=== PATIENT | male | born 1950 | race Caucasian/White ===

== ENCOUNTER → 2016-11-23 | Outpatient (CLI) | payer BC | END | disposition home or self-care (01) | LOC: CRE 10:13 | PROVIDERS: ATTEND Internal Medicine Cardiovascular Disease | DX: I25.10 Atherosclerotic heart disease of native coronary artery without angina pectoris (principal) | CPT/HCPCS: 93797 ==

== ENCOUNTER → 2017-03-23 | Outpatient (CLI) | payer BC ==
--- NOTE | 2017-03-23 15:22 | RADRPT ---
PROCEDURE: Left knee radiographs. CLINICAL INDICATION: Left knee pain. TECHNIQUE: Three views. Weight bearing. Frontal, lateral, and patellar view. COMPARISON: No prior studies are available for comparison. FINDINGS: There is no fracture or dislocation. The soft tissues are normal. There are degenerative changes with osteophytes arising from all 3 joint compartment margins. There is medial joint compartment narrowing and mild deformity. There is no lytic or blastic lesion. There is no radiopaque foreign body. IMPRESSION: 1. Moderate to severe degenerative changes of the left knee. 2. No acute abnormality. RPTAT: QQ .Romaine Mohamud MD, MD Date Time Electronically viewed and signed by .Romaine Mohamud MD, on 03/23/2017 15:22 .R/
== END | disposition home or self-care (01) ==
LOC: HKI 13:51
DX: M25.562 Pain in left knee (principal)
CPT/HCPCS: 20610; G0463

== ENCOUNTER → 2017-05-09 | Outpatient (CLI) | payer MEDICARE, OTHER ==
[~2017-05-09] MED LIST: ADDE30 PO; ASPI-664 PO; CARV6.25 PO; LORA1TAB PO; OMEG-135 PO; PRAS10TA6 PO; RANI150T9 PO; RANO500T2 PO; ROSU20TA27 PO; TEMA15CA PO; TRAM50TA2 PO; UBID30CA12 PO; VALS320T11 PO
--- NOTE | 2017-05-10 09:13 | RADRPT ---
PROCEDURE: XR Knee. CLINICAL INDICATION: Right knee pain TECHNIQUE: 3 images of the right knee are available for review. COMPARISON: None available FINDINGS: There is no acute fracture. Alignment is normal. Joint spaces are preserved. There is a small suprapatellar enthesophyte. There is no significant joint effusion. IMPRESSION: 1. No radiographic evidence of acute osseous abnormality or significant degenerative change. RPTAT: UU .Kaleb Wright MD, MD Date Time Electronically viewed and signed by .Kaleb Wright MD, on 05/10/2017 09:13 .K/
--- NOTE | 2017-05-12 02:39 | HKNOTE ---
DATE OF SERVICE: 05/09/2017 MAIN COMPLAINT: Patient comes for preop evaluation. He has been cleared for surgery by Dr. Lakhwinder Blackwell. He is scheduled to have a left total knee replacement on 05/10/2017. I think he said that he has not given any blood for autotransfusion. He understands the risks associated with using hospital blood, if needed. Numerous questions were asked and answered. In particular, he wanted to talk about his right knee, which has various symptoms. Patient has various symptoms which possibly suggest a torn meniscus. I advised him we will get an MRI scan of the knee after he has had his left total knee replacement. He was seen at the Clinic many years ago and he was told he would need a lateral release of the patella. José Manuel Walker did an operative arthroscopy on the knee. PHYSICAL EXAMINATION: The left knee lacks 15 degrees of extension. Dictated By: Herber Morel MD /rico/erick /Document#: [id number]
== END | disposition home or self-care (01) ==
LOC: HKI 13:31
DX: Z01.818 Encounter for other preprocedural examination (principal); M17.12 Unilateral primary osteoarthritis, left knee
CPT/HCPCS: 73562; G0463

== ENCOUNTER 2017-05-10 05:57 | Inpatient (IN) | payer MEDICARE, OTHER ==
[2017-05-10] VITALS (28 sets, daily range): BP systolic 95–132; BP diastolic 50–85; PULSE 50–75; RESP 10–22; Ht 172.7 cm; Wt 79.5 kg
[~2017-05-10] VITALS: Ht 172.7 cm; Wt 79.5 kg
[~2017-05-10 05:57] MED LIST changes: -ADDE30 PO; -CARV6.25 PO; -LORA1TAB PO; -OMEG-135 PO; -PRAS10TA6 PO; -RANO500T2 PO; -ROSU20TA27 PO; -TEMA15CA PO; -TRAM50TA2 PO; -UBID30CA12 PO; -VALS320T11 PO
[2017-05-10] MEDS ORDERED: RANO500T2 PO (05:58)
[2017-05-10] MEDS ORDERED: ROSU20TA27 PO (05:58)
[2017-05-10] MEDS ORDERED: VALS320T11 PO (05:58)
[2017-05-10] MEDS ORDERED: PRAS10TA6 PO (05:58)
[2017-05-10] MEDS ORDERED: CARV6.25 PO (05:58)
[2017-05-10] MEDS ORDERED: TRANEXAMIC ACID IVPB ONE (06:30)
[2017-05-10] MEDS ORDERED: VANCOMYCIN 1 GM (PMX) 250 ML IVPB ONE (06:30)
[2017-05-10] MEDS ORDERED: TRANEXAMIC ACID IRR SCH ×2 (06:30)
[2017-05-10] MEDS ORDERED: CELECOXIB 200 MG CAP PO ONE (06:30)
[2017-05-10] MEDS ORDERED: ONDANSETRON 4 MG INJ IV ONE (06:30)
[2017-05-10] MEDS ORDERED: LACTATED RINGER'S 1,000 ML IV* SCH (06:30)
[2017-05-10] MEDS ORDERED: LANSOPRAZOLE 30 MG CAP PO ONE (06:30)
[2017-05-10] MEDS ORDERED: oxyCODONE (CR) 10 MG TAB [oxyCONTIN] PO ONE (06:30)
[2017-05-10] MEDS ORDERED: SOD CHLORIDE 0.9% IRR SCH ×2 (06:30)
[2017-05-10] MEDS ORDERED: SOD CHLORIDE 0.9% IVPB ONE (06:30)
[2017-05-10] MEDS ORDERED: DEXAMETHASONE 4 MG/ML 1 ML INJ IV ONE (06:30)
[2017-05-10] MEDS ORDERED: MIDAZOLAM 1 MG/ML 2 ML INJ ONE (06:39)
[2017-05-10] MEDS ORDERED: ROPIVACAINE 0.2% 100 ML ONE (06:47)
[2017-05-10] MEDS ORDERED: POLYMYXIN B 500000 UNIT INJ ONE (06:47)
[2017-05-10] MEDS ORDERED: VANCOMYCIN 1 GM INJ ONE (06:47)
[2017-05-10] MEDS ORDERED: METHYLENE BLUE 1% 10 ML INJ ONE (06:48)
[2017-05-10] MEDS ORDERED: TOBRAMYCIN 1.2 GM POWDER ONE (06:48)
[2017-05-10] MEDS ORDERED: BUPIVACAINE 0.25%/EPI (SDV) 10 ML INJ ONE (06:56)
--- NOTE | 2017-05-10 06:59 | HPN ---
Date/Time of Note Date/Time of Note DATE: 05/10/17 TIME: 06:59 Interval H&P Admission Note Pt. seen H&P reviewed: No system changes JOSH HERNANDEZ PA-C May 10, 2017 06:59
[2017-05-10] MEDS ORDERED: ROPIVACAINE 0.5 % 30 ML VIAL ONE (07:22)
[2017-05-10] MEDS ORDERED: KNEE PAIN COCKTAIL VANCO INJ SCH ×6 (07:30)
[2017-05-10] MEDS ORDERED: TRAM50TA2 PO (07:30)
[2017-05-10] MEDS ORDERED: ADDE30 PO (07:30)
[2017-05-10] MEDS ORDERED: LORA1TAB PO (07:30)
[2017-05-10] MEDS ORDERED: TEMA15CA PO (07:30)
[2017-05-10] MEDS ORDERED: UBID30CA12 PO (07:30)
[2017-05-10] MEDS ORDERED: OMEG-135 PO (07:30)
[2017-05-10] MEDS ORDERED: BACITRACIN 50000 UNITS INJ IRR ONE (08:14)
[2017-05-10] MEDS ORDERED: ROPIVACAINE 0.2% 100ML BAG INJ ONE (08:15)
[2017-05-10] MEDS ORDERED: TRIAMCINOLONE ACET 40 MG/ML INJ ONE (09:41)
--- NOTE | 2017-05-10 11:30 | OPR ---
Date/Time of Note Date/Time of Note DATE: 05/10/17 TIME: 11:23 Operative Report Free Text/Dictation Surgeon Dr. Maehr Shearing Supervisor Miguelangel Saldana Anesthesiology Dr. Sims Preoperative diagnose severe degenerative osteoarthritis of the left Postoperative diagnosis same Surgery left total knee replaced Findings at surgery severe arthritis of the left bone extremely hard estimated blood loss 150 cc Specimen bone Transfusion none grafts none Complications none LEXIE MAHER MD May 10, 2017 11:29
[2017-05-10] MEDS ORDERED: PROPOFOL 20 ML ONE (11:33)
[2017-05-10] MEDS ORDERED: ROCURONIUM 50 MG INJ ONE (11:33)
[2017-05-10] MEDS ORDERED: LIDOCAINE 2% (SDV) 5 ML INJ ONE (11:33)
[2017-05-10] MEDS ORDERED: GLYCOPYRROLATE 0.4 MG INJ ONE (11:33)
[2017-05-10] MEDS ORDERED: NEOSTIGMINE 3 MG/3 ML SYRINGE ONE (11:33)
[2017-05-10] MEDS ORDERED: ONDANSETRON 4 MG INJ ONE (11:33)
--- NOTE | 2017-05-10 11:44 | OPR ---
Date/Time of Note Date/Time of Note DATE: 05/10/17 TIME: 11:30 Operative Report Procedure Description Date of Operation: June 10, 2017 Surgeon: Herber Morel MD Corporate Intern: Ron Bills PA-C Anesthesiologist: Dr. Aaron Fuller Preoperative Diagnosis: Exceedingly severe degenerative osteoarthritis of the left knee. Postoperative Diagnosis: Exceedingly severe degenerative osteoarthritis of the left knee. Operation Performed: Total knee replacement (arthroplasty of the knee, condylar plateau medial and lateral compartments with patella resurfacing, CPT 21463). Justification for Surgery: The knee was found to have an end-stage osteoarthritis. The patient is a very active 66-year-old diffuse lifestyles markedly affected by the arthritic knee. An extensive course of conservative care has been tried prior to embarking on the knee replacement operation. There can be no reasonable expectation that any further conservative treatment will make any improvement to this patient's pain level and lifestyle. The risks and complications of the surgery were discussed with the patient at the preoperative visit as well as the risks and possible complications of blood transfusion using hospital blood. The patient is agreeable to using hospital blood if needed. Description of Procedure: The patient was given intravenous antibiotics 1 hour prior to surgery. An epidural anesthetic was initiated in the ICU holding area. The patient was taken to the operating room and given a light general anesthetic. The leg, foot, and ankle were prepared and draped in the usual sterile fashion. The center of the ankle was marked at the midpoint between the 2 malleoli with a sterile marking pen. A tourniquet around the thigh was inflated to 225 mmHg after the leg had been exsanguinated using an Esmarch bandage. The tourniquet was inflated at the initiation of procedure for a short period and was then again reinflated at the time of cementing the components parts. The total tourniquet time was 47 minutes. A longitudinal incision was made over the anterior aspect of the knee. The incision extended from the tibial tubercle to a point just above the patella. The medial capsule was exposed by sharp and blunt dissection, and was incised inch medial to the patella. A marking stitch was set on each side of the incision at the midpoint of the capsule so as to enable accurate reapproximation at the end of the operation. A vastus split was made in the vastus medialis extending from the superior pole of the patella for approximately 5 cm between the line with the muscle fibers. The ends of the muscle split at the patella were marked with a marking stitch on each side for later accurate reapproximation. The patella was reflected laterally and osteophytes around the brim of the patella were removed. Osteophytes along the lateral femoral condyle were removed so as to facilitate lateral reflection of the patella. Posterior medial osteophytes were removed on the lateral side as well, Sastry free of the lateral collateral ligament. Medial femoral osteophytes and posteromedial femoral osteophytes were also removed at this time. This allowed for the knee to be brought into a more normal alignment. A segment of bone was cut from the articular surface of the patella using a caliper to determine the exact thickness to be removed. The remaining thickness of the patella was 16 mm. The knee was flexed, and the patella was displaced laterally without eversion. Osteophyte in the femoral notch were removed. The remnants of the medial and lateral menisci were excised and the cruciate ligaments were excised. The medial collateral ligament was elevated as an osteo -periosteal flap from the proximal tibia. The distal end of the medial collateral ligament remained attached to the tibia throughout the operation. The tibia was retracted forward with Hohmann retractor, inserted posterior to the midpoint of the proximal tibia. The tibial jig was set in place in such a way as to align longitudinally with the anterior tibial spine, with the junction of the middle and medial 2/3 of the patella tendon and with the posterior intercondylar eminence of the tibia. An AP and lateral x-ray was obtained with the ligament jig in place. This showed that the alignment was satisfactory after some slight adjustments were made. The posterior slope of the tibia was set at 6 degrees. The tibial cutting block was attached to the proximal tibia with 2 Steinmann pins. An external alignment manuelito was placed and the cutting block to confirm the alignment of the cutting block. An Subhash Wing feeler gauge was now placed on the superior aspect of the cutting block to further confirm the posterior slope of the tibia in the depths of the cut to be made. An oscillating saw was used to remove an appropriate amount of bone from the proximal tibia with the healthy side being used to measure the cutting depth. The lateral femoral condyle of the distal femur was measured to determine the appropriate size for the femoral component. The anterior condyle of the femur was partially removed with a rongeur. A medium size cutting block was attached to the distal femur with 2 Steinmann pins through the pinholes in the block. The external alignment jig of this cutting block was lined up with the anterior surface of the femur and a central intercondylar hole for the intra -medullary manuelito was drilled into the hole and the alignment block. The block was removed. A long Water pik nozzle was used to flush fat from the intramedullary canal. The appropriately sized cutting block was now attached to the femur by means of intramedullary manuelito. The linking guide was inserted into the slot in the base of the femoral cutting block with the knee set at 90 degrees of flexion and with the linking guide set flush with the proximal tibial cut in order to set the appropriate rotational alignment on the femoral cutting block. Ligament balance was checked at this point and was found to be very satisfactory. Once the rotational alignment had been determined, and the ligaments found to be balanced, the femoral cutting block was secured to the distal femur with 2 Steinmann pins. The anterior and posterior cuts of the distal femur were made off the femoral cutting block. The cutting block was removed and a spacer block was used to measure the flexion gap which was found to be 12.5 mm. The same block size without the femoral element was used with the leg extension to determine the amount of distal femur to be removed in the transverse plane. A 5 degree distal cutting block was now set on the femoral entry intramedullary manuelito, and the manuelito was inserted into the intramedullary canal. The appropriate amount of bone to be removed was determined. The femoral cutting block was pinned to the anterior surface of the femur with 2 Steinmann pins. The appropriate amount of bone was resected off the distal femur to give an extension gap equal to the thickness of the flexion gap. The cut needed to be repeated after initial cut in order to produce an extension gap the same size of the flexion gap. By using the appropriate cutting blocks, the rest of the femoral cuts were made. The femoral trial component was installed and was found to fit perfectly. The femoral trial component was removed. The proximal tibia was sized, and the appropriate tibial tray selected. The central fixation hole in the tibia was made using the tibial tray template and the appropriate instruments. The femoral tibial trials and the trial tibial insert were installed, and the patella was prepared to accept the 30 sized dome component. The trial components were all removed. The tourniquet was inflated. Soft tissues around the knee, especially the posterior capsule, were injected with mixture of Naropin, Toradol, morphine, and clonidine. The cut surfaces of the bones were cleaned with pulsatile Water Jet lavage and thoroughly dried. Sclerotic bone surfaces were drilled with a 1/8-inch drill. The tibial trial component was installed with the methyl methacrylate cement followed by the femoral component and finally the patellar component. Cement was used on all 3 components. The cement was finger packed into the cut surfaces of the bone and pressurized with a rubber dam in order to get good interdigitation of the cement into the bone. A lateral x-ray of the knee was obtained while the cement was hardening with the anticipated appropriate spacer trial in place. This showed that the knee was in full extension. Once the cement was hard, all extraneous cement was removed. The cut edges of the medial capsule were held together at the midpoint with a towel clip, and the knee was put through a full range of motion. The patella was found to track satisfactorily. A lateral release was not required. At this point, the patella was round to track very well in the patellar groove of the femoral component. The knee was frequently irrigated with normal saline containing antibiotics with pulsatile lavage throughout the entire operation as a prophylactic measure against infection. Once the cement was hard, the tourniquet was released. Bleeding points were cauterized. The total tourniquet time was []. The patient 's vital signs remained stable throughout the operation. The permanent rotating bearing was installed. Superficial and deep Hemovac drains were set in place. The wound was closed using interrupted Vicryl on the capsule with FiberWire used strategic points such as the attachment of the distal ends of the vastus medialis split, and the tibial tendon was also attached to the osteo--periosteal flap with FiberWire. The rest of the medial capsule was closed with interrupted Vicryl. A subcuticular stitch was inserted and lisseth were used on the skin. The usual sterile dressings were applied. A Zac-Benoit compression dressing was applied after sterile cooling pad had been set in place against the deep tissue by sterile cast padding. The patient's condition at the end of the procedure was satisfactory. Vital signs remained stable throughout the operation. The patient returned to the recovery room in stable condition. X-rays were obtained in the recovery room. Calf pumps were applied to both legs in the operating room. There were no problems or complications as far as we know. The sponge and instrument count were correct. Component Information: Knee Implant Type: LCS. Femoral Component Size: Large Tibial Component Size: 3 Patellar Component Size: 35 Tibial Insert: 12.5 mobile bearing posterior stabilized Implant Wall Taper: [employer] [place], [place]. Total Tourniquet Time: 39 Total Blood Loss: 150 Dictacted By: MD NIKA Venegas HERBERT D MD May 10, 2017 11:42
--- NOTE | 2017-05-10 11:44 | PDOCDIS ---
Discharge Instructions DIAGNOSIS Discharge Diagnosis Status post left total knee arthroplasty CONDITION Patient Condition: Stable HOME CARE INSTRUCTIONS: Diet Instructions: Regular ACTIVITY: Activity Restrictions: Slowly Increase Activity Rest between Activity Avoid heavy lifting No Sexual Activity Do not Drive Do not operate Machinery Do not operate Power Tool Avoid Heavy Housework Keep Limb Elevated (While at rest and using ice modalities.) Weight Bearing (As tolerated while using front wheeled walker.) Bathing Restrictions: Shower (Using Tegaderm with pad. Apply prior to shower. After shower let air dry before removing pad. Repeat the steps each days until lisseth are removed around 10 days postoperatively.) FOLLOW UP/APPOINTMENTS Follow-up Plan May 31, 2017 at 2:15 PM in outpatient office. JOSH HERNANDEZ PA-C May 10, 2017 11:44
[2017-05-10] MEDS ORDERED: HYDROmorphONE 0.2 MG/ML PCA IV PRN (12:00)
[2017-05-10] MEDS ORDERED: NALOXONE (0.4 MG/ML) INJ IV PRN (12:00)
[2017-05-10] MEDS ORDERED: ZOLPIDEM 5 MG TAB PO PRN (12:00)
[2017-05-10] MEDS ORDERED: COUMADIN NOTE XX SCH (12:00)
[2017-05-10] MEDS ORDERED: TRANEXAMIC ACID 800 MG in SOD CHLORIDE 0.9% 100 ML IVPB ONE ×4 (12:00)
[2017-05-10] MEDS ORDERED: SENNA/DOCUSATE NA (8.6MG/50MG) TAB PO PRN (12:00)
[2017-05-10] MEDS ORDERED: BISACODYL 10 MG SUPP PR PRN (12:00)
[2017-05-10] MEDS ORDERED: NA PHOSPHATE/BIPHOS 133 ML ENEMA PR PRN (12:00)
[2017-05-10] MEDS ORDERED: MAGNESIUM HYDROXIDE 30ML CUP PO PRN (12:00)
[2017-05-10] MEDS ORDERED: DIPHENHYDRAMINE 50 MG INJ IM PRN (12:00)
[2017-05-10] MEDS ORDERED: MEPERIDINE 10 MG/ML 30 ML PCA IV PRN (12:00)
[2017-05-10] MEDS ORDERED: ASPIRIN (EC) 325 MG TAB PO ONE (12:00)
[2017-05-10] MEDS ORDERED: BETHANECHOL 25 MG TAB PO PRN (12:00)
[2017-05-10] MEDS ORDERED: DOCUSATE SODIUM 100 MG CAP PO ONE (12:00)
[2017-05-10] MEDS ORDERED: oxyCODONE 5 MG TAB PO PRN (12:00)
[2017-05-10] MEDS: ONDANSETRON 4 MG INJ IV SCH ×3 (12:23→23:10)
[2017-05-10] MEDS: CEFAZOLIN 1 GM/50 ML (PMX) 50 ML IVPB SCH ×2 (12:24→20:39)
--- NOTE | 2017-05-10 12:35 | RADRPT ---
PROCEDURE: CR Left Knee CLINICAL INDICATION: Postop TECHNIQUE: AP and lateral views were submitted. COMPARISON: There are to the intraoperative study done earlier on the same date. FINDINGS: Osseous Structures: There is again evidence of a total left knee replacement with the components tony earing well seated. The osseous elements otherwise appear rarefied but intact. Joint Spaces: Intra-articular air is evident. No joint effusion is identified. Soft Tissues: Drains and anterior lisseth have been placed. IMPRESSION: 1. Well seated total left knee replacement components. 2. Osteoporosis. 3. Postoperative drains and lisseth are noted along with intra-articular air. Physician Karen Date Time Electronically viewed and signed by Physician Karen on 05/10/2017 12:34 /
--- NOTE | 2017-05-10 12:37 | RADRPT ---
PROCEDURE: CR Left Knee CLINICAL INDICATION: Left knee replacement TECHNIQUE: A single portable cross-table lateral view of the left knee was submitted. COMPARISON: 03/23/2017 FINDINGS: Osseous Structures: Since the previous study, the distal femoral and proximal tibial components of a left knee replacement have been satisfactorily seated. The patella is absent and a metal instrumen t extends from an anterior approach into the femoral tibial joint space. Joint Spaces: The joint spaces are well maintained. No joint effusion is identified. Soft Tissues: The soft tissues appear unremarkable. IMPRESSION: 1. The distal femoral and proximal tibial components of a knee replacement appear well seated. 2. A middle instrument extends from an anterior approach into the femoral tibial joint space and th e patella is absent. Physician Karen Date Time Electronically viewed and signed by Physician Karen on 05/10/2017 12:37 /
[2017-05-10] MEDS: DEXTROSE 5%-LR 1,000 ML IV SCH (13:25)
--- NOTE | 2017-05-10 17:19 | PN ---
Date/Time of Note Date/Time of Note DATE: 05/10/17 TIME: 17:10 Assessment/Plan VTE Prophylaxis VTE Prophylaxis Intervention: other (asa) Lines/Catheters IV Catheter Type (from Nrsg): Peripheral IV Urinary Cath still in place: No Subjective 24 Hr Interval Summary Free Text/Dictation this is a 66 yr old man post tkr today for end stage djd left knee. he is alert , but feels exhausted, mild nausea, not much pain. has been up once.voiding ok pmh 1. ashd post stenting in august 2016 on valsartan, coreg, crestor and effient. also asa and Zantac. no cardiac sx pre or post op. 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 hbp on meds 3. stage 1 renal cell ca dx 12/08 found incidentally, post partial nephrectomy without evidence of recurrence 4. diet controlled dm, bs generally less than 120. has lost thirty pounds as part of treatment program from yeast stacker, dr matta in [place]. non smoker, occ etoh allergy to codeine, cipro meds per listg above and in chart fh mo living, fa . , two grown kids on exam vs per below heent ok lungs clear heart rate dok abd soft, bs present no melvin extremities alert, fluent, oriented, non focal left leg in soft splint, otherwise all ok Exam/Review of Systems Vital Signs Vitals Vital Signs Date Time Temp Pulse Resp B/P Pulse Ox O2 Delivery O2 Flow Rate FiO2 05/10/17 13:28 98.7 55 19 132/81 97 05/10/17 13:02 Nasal Cannula 05/10/17 12:05 2.0 Results Results 24 hrs Laboratory Tests Test 05/10/17 06:42 Bedside Glucose 119 Medications Medications Current Medications Sodium Chloride 50 ml/Tranexamic Acid 1540 mg INTRA-OP IRR ; Start 05/10/17 at 06:30 Dextrose/Lactated Ringer's (D5-Lr) 1,000 ml @ 80 mls/hr [id number] IV Last administered on 05/10/17t 13:25; Admin Dose 80 MLS/HR; Start 05/10/17 at 11:31 Hydromorphone HCl (Dilaudid HEALTH INFORMATION SPECIALIST) Q4PCA PRN IV SEVERE PAIN 8-10; Start at 12:00; Stop 05/11/17 at 11:59 Meperidine HCl (Demerol HEALTH INFORMATION SPECIALIST) Q4PCA PRN IV SEVERE PAIN 8-10; Start 05/10/17 at 12:00; Stop 05/11/17 at 11:59 Oxycodone HCl (Roxicodone) 20 mg Q3H PRN PO PAIN LEVEL 8-10; Start 05/10/17 at 12:00 Oxycodone HCl (Roxicodone) 10 mg Q3H PRN PO PAIN LEVEL 4-7; Start 05/10/17 at 12:00 Zolpidem Tartrate (Ambien) 5 mg HS PRN PO INSOMNIA; Start 05/10/17 at 12:00 Ondansetron HCl 4 mg 4 mg Q6H IV Last administered on 05/10/17t 12:23; Admin Dose 4 MG; Start 05/10/17 at 12:00; Stop 05/11/17 at 06:01 Cefazolin Sodium (Ancef 1 Gm/50 ml (Pmx)) 50 ml @ 100 mls/hr Q8H IVPB Last administered on 05/10/17 12:24; Admin Dose 100 MLS/HR; Start 05/10/17 at 12:00 ; Stop 05/11/17 at 04:29 Miscellaneous Information (Note) NOTE XX ; Start 05/10/17 at 12:00 Aspirin (Ecotrin) 325 mg BID PO ; Start 05/11/17 at 09:00 Celecoxib (Celebrex) 200 mg BID PO ; Start 05/11/17 at 09:00 Dexamethasone (Decadron) 4 mg DAILY@07 IV ; Start 05/11/17 at 07:00; Stop at 06:59 Pantoprazole (Protonix Tab) 40 mg DAILY@06 PO ; Start 05/12/17 at 06:00 Docusate Sodium/ Ferrous Fumarate (Samuel-Sequels) 1 tab BID PO ; Start 05/11/17 at 09:00 Docusate Sodium (Colace) 200 mg BID PO ; Start 05/11/17 at 09:00; Stop 05/14/17 at 08:59 Simethicone (Mylicon) 80 mg TID PRN PO DISTENSION/GAS/BLOATING; Start 05/10/17 at 12:00 Senna/Docusate Sodium (Senokot-S) 2 tab BID PRN PO CONSTIPATION; Start at 12:00 Magnesium Hydroxide (Milk Of Mag) 30 ml HS PRN PO CONSTIPATION; Start 05/10/17 at 12:00 Bisacodyl (Dulcolax Supp) 10 mg DAILY PRN [place] CONSTIPATION; Start 05/10/17 at 12 :00 Sodium Biphosphate/ Sodium Phosphate (Fleet Enema) 133 ml DAILY PRN [place] CONSTIPATION; Start 05/10/17 at 12:00 Diphenhydramine HCl (Benadryl) 25 mg Q4H PRN IM ITCHING OR RASH; Start at 12:00 Ketorolac Tromethamine (Toradol) 15 mg DAILY@06 PRN INJ ADMINSTER BY SURGEON ONLY; Start 05/11/17 at 06:00; Stop 05/15/17 at 05:59 Bupivacaine HCl/ Epinephrine Bitart (Marcaine 0.25%/ Epi (Sdv) 30 ml) 20 ml DAILY@06 PRN INJ ADMINSTER BY SURGEON ONLY; Start 05/11/17 at 06:00; Stop 05/15 at 05:59 Naloxone HCl (Narcan) 0.2 mg Q2M PRN IV DECREASED REPIRATORY RATE; Start at 12:00 JOHN GUILLERMO MD May 10, 2017 17:19
[2017-05-10] MEDS ORDERED: VALSARTAN 160 MG TAB PO ONE (17:30)
[2017-05-10] MEDS: TEMAZEPAM 15 MG CAP PO PRN (23:05)
[2017-05-11] MEDS: DEXTROSE 5%-LR 1,000 ML IV SCH ×2 (00:22→11:37)
[2017-05-11] MEDS: CEFAZOLIN 1 GM/50 ML (PMX) 50 ML IVPB SCH (04:34)
[2017-05-11 05:19] LABS: ABNORMAL IP MESSAGE 1; EOSINOPHILS % 0.1 % (0.0-7.0); HEMOGLOBIN 8.9 g/dl (14.0-18.0); LYMPHOCYTES # 0.6 10^3/ul (0.8-2.9); LYMPHOCYTES % 6.6 % (15.0-51.0); MEAN CORPUSCULAR HEMOGLOBIN 32.8 pg (29.0-33.0); MEAN CORPUSCULAR HGB CONC 34.2 g/dl (32.0-37.0); MEAN CORPUSCULAR VOLUME 95.9 fl (82.0-101.0); MEAN PLATELET VOLUME 10.5 fl (7.4-10.4); MONOCYTES % 11.6 % (0.0-11.0); NEUTROPHILS % 81.2 % (39.0-77.0); PLATELET COUNT 139 10^3/UL (140-415); POSITIVE DIFF @See below; RED BLOOD COUNT 2.71 10^6/ul (4.70-6.10); RED CELL DISTRIBUTION WIDTH 11.9 % (11.5-14.5); WHITE BLOOD COUNT 8.7 10^3/ul (4.8-10.8)
[2017-05-11] MEDS ORDERED: KETOROLAC 15 MG INJ INJ PRN (06:00)
[2017-05-11] MEDS: ONDANSETRON 4 MG INJ IV SCH (06:00)
[2017-05-11] MEDS ORDERED: BUPIVACAINE 0.25%/EPI (SDV) 30 ML INJ INJ PRN (06:00)
[2017-05-11] MEDS: DEXAMETHASONE 4 MG/ML 1 ML INJ IV SCH (06:17)
--- NOTE | 2017-05-11 07:19 | PN ---
Date/Time of Note Date/Time of Note DATE: 05/11/17 TIME: 07:16 Assessment/Plan VTE Prophylaxis VTE Prophylaxis Intervention: ambulation, SCD's, other (Aspirin 325 mg twice daily) Lines/Catheters IV Catheter Type (from Nrsg): Peripheral IV Lee in Place (from Nrsg): No Assessment/Plan Assessment/Plan -580 cc output from Hemovac. Will remain 1 additional day and expected to be removed on postop day 2 -Pain Cocktail Given -Pain Meds as needed -Dress change performed today -OOB with PT -ASA/SCDs for DVT Prophylaxis -Continue monitoring with Internal Medicine. Patient does have low red blood cell count as well as low hemoglobin. We will defer to internal medicine to determine whether patient needs packed red blood cells. -Patient Stable -Patient respectfully declines MRI while inpatient. We will cancel this order. Patient would like to wait until he is outpatient as he would like to focus on his left knee due to his anxiety. Subjective 24 Hr Interval Summary 66-year-old male postop day 1 status post left total knee arthroplasty. Denies any significant pain complaints of the left knee. Denies any calf pain, chest pain/tightness or shortness of breath. Patient did have one session of physical therapy yesterday where he states he was up and out of bed. Patient declined MRI to the right knee for internal derangement as he has a history of claustrophobia and does not wish to pursue right knee MRI at this time. Patient doing well. Pain Control: well controlled Exam/Review of Systems Vital Signs Vitals Vital Signs Date Time Temp Pulse Resp B/P Pulse Ox O2 Delivery O2 Flow Rate FiO2 05/10/17 23:38 98.2 70 18 116/62 98 05/10/17 16:30 Nasal Cannula 05/10/17 12:05 2.0 Intake and Output 05/10/17 05/10/17 05/11/17 15:00 23:00 07:00 Intake Total 2115.4 ml 1258 ml 1800 ml Output Total 155 ml 460 ml 1280 ml Balance 1960.4 ml 798 ml 520 ml Exam Free Text/Dictation -Hemovac: Intact 580 cc output -Pain Cocktail Drains: Intact -Incision: Clean, Dry and Intact without any redness or drainage. Bleeding at pain catheter site that has subsided. -5/5 Tibialis Anterior, EHL Gastrocnemius/Soleus and Peroneals -Patient is able to fully extend on exam today. Patient is able to flex up to 120 without pain. -Normal Sensation -Palpable DP/PT, Capillary Refill <2 secs -No Distal Edema -Negative Citlali Sign/No calf pain -Toes Freely Movable Constitutional: alert, oriented, well developed Results Result Diagram: 05/11/17 0444 JOSH HERNANDEZ PA-C May 11, 2017 07:19
[2017-05-11] MEDS ORDERED: LORAZEPAM 2 MG INJ IV ONE (07:30)
[2017-05-11 08:24] VITALS: BP 108/66; RESP 20
[2017-05-11] MEDS ORDERED: CELECOXIB 200 MG CAP PO SCH (09:00)
[2017-05-11] MEDS: ASPIRIN (EC) 325 MG TAB PO SCH ×2 (09:00→21:00)
[2017-05-11] MEDS: PRASUGREL HYDROCHLORIDE 10 MG TABLET PO SCH (09:00)
[2017-05-11] MEDS: DOCUSATE SODIUM 100 MG CAP PO SCH ×2 (09:06→21:50)
[2017-05-11] MEDS: FERROUS FUMARATE (SR) TAB PO SCH ×2 (09:08→21:50)
[2017-05-11 15:15] VITALS: BP 104/58; RESP 18
[2017-05-11] MEDS: LORAZEPAM 1 MG TAB PO PRN (19:08)
--- NOTE | 2017-05-11 19:23 | CONS ---
Date/Time of Note Date/Time of Note DATE: 05/11/17 TIME: 19:15 Assessment/Plan Assessment/Plan Problems: (1) Postoperative anemia due to acute blood loss Status: Acute Comment: Unable to do autotransfusion. Will transfuse 1 unit PRBC re check H/H and if hemoglobin below 10 will transfuse second unit PRBC (2) Renal cell carcinoma Status: Resolved Comment: History of partial nephrectomy . No issues at this time. (3) ASHD (arteriosclerotic heart disease) Status: Chronic Comment: History of PTCA. On blood thinning medications. Will resume once blood drainage from knee resolves. (4) Degenerative arthritis Comment: S/p left total knee arthroplasty. Clinically stable. Qualifiers: Osteoarthritis location: knee Laterality: left Consultation Date/Type/Reason Admit Date/Time May 10, 2017 at 05:57 Initial Consult Date 05/10/2017 Type of Consultation: Internal Medicine Reason for Consultation Post op follow up Referring Provider: LEXIE MAHER MD 24 HR Interval Summary Free Text/Dictation Denies complaint of chest pain, shortness of breath, and lightheadedness. Patient concerned about abundant blood loss postoperatively. Exam/Review of Systems Vital Signs Vitals Vital Signs Date Time Temp Pulse Resp B/P Pulse Ox O2 Delivery O2 Flow Rate FiO2 05/11/17 15:15 98.3 56 18 104/58 99 05/10/17 16:30 Nasal Cannula 05/10/17 12:05 2.0 Intake and Output 05/10/17 05/10/17 05/11/17 15:00 23:00 07:00 Intake Total 2115.4 ml 1258 ml 1800 ml Output Total 155 ml 460 ml 1280 ml Balance 1960.4 ml 798 ml 520 ml Exam Pain 3/10 Constitutional: alert, oriented, well developed Psych: anxiety Eyes: EOMI, PERRL, nl conjunctiva Neck: supple Respiratory: clear to auscultation, normal air movement Cardiovascular: nl pulses, regular rate and rhythm Gastrointestinal: soft Musculoskeletal: nl extremities to inspection Extremities: normal pulses Results Labs and chart reviewed Result Diagram: 05/11/17 0444 Results 24 hrs Laboratory Tests Test 05/11/17 04:44 White Blood Count 8.7 Red Blood Count 2.71 L Hemoglobin 8.9 L Hematocrit 26.0 L Mean Corpuscular Volume 95.9 Mean Corpuscular Hemoglobin 32.8 Mean Corpuscular Hemoglobin Concent 34.2 Red Cell Distribution Width 11.9 Platelet Count 139 L Mean Platelet Volume 10.5 H Neutrophils % 81.2 H Lymphocytes % 6.6 L Monocytes % 11.6 H Eosinophils % 0.1 Basophils % 0.0 Nucleated Red Blood Cells % 0.0 Neutrophils # (Manual) 7.0 Lymphocytes # 0.6 L Monocytes # 1.0 H Eosinophils # 0.0 Basophils # 0.0 Nucleated Red Blood Cells # 0.0 Medications Medications Current Medications Dextrose/Lactated Ringer's (D5-Lr) 1,000 ml @ 80 mls/hr [id number] IV Last administered on 05/11/17 00:22; Admin Dose 80 MLS/HR; Start 05/10/17 at 11:31 Oxycodone HCl (Roxicodone) 20 mg Q3H PRN PO PAIN LEVEL 8-10; Start 05/10/17 at 12:00 Oxycodone HCl (Roxicodone) 10 mg Q3H PRN PO PAIN LEVEL 4-7; Start 05/10/17 at 12:00 Miscellaneous Information (Note) NOTE XX ; Start 05/10/17 at 12:00 Aspirin (Ecotrin) 325 mg BID PO ; Start 05/11/17 at 09:00 Celecoxib (Celebrex) 200 mg BID PO ; Start 05/11/17 at 09:00 Dexamethasone (Decadron) 4 mg DAILY@07 IV Last administered on 05/11/17 06:17 ; Admin Dose 4 MG; Start 05/11/17 at 07:00; Stop 05/14/17 at 06:59 Pantoprazole (Protonix Tab) 40 mg DAILY@06 PO ; Start 05/12/17 at 06:00 Docusate Sodium/ Ferrous Fumarate (Samuel-Sequels) 1 tab BID PO Last administered on 05/11/17 09:08; Admin Dose 1 TAB; Start 05/11/17 at 09:00 Docusate Sodium (Colace) 200 mg BID PO Last administered on 05/11/17 09:06; Admin Dose 200 MG; Start 05/11/17 at 09:00; Stop 05/14/17 at 08:59 Simethicone (Mylicon) 80 mg TID PRN PO DISTENSION/GAS/BLOATING; Start 05/10/17 at 12:00 Senna/Docusate Sodium (Senokot-S) 2 tab BID PRN PO CONSTIPATION; Start at 12:00 Magnesium Hydroxide (Milk Of Mag) 30 ml HS PRN PO CONSTIPATION; Start 05/10/17 at 12:00 Bisacodyl (Dulcolax Supp) 10 mg DAILY PRN [place] CONSTIPATION; Start 05/10/17 at 12 :00 Sodium Biphosphate/ Sodium Phosphate (Fleet Enema) 133 ml DAILY PRN [place] CONSTIPATION; Start 05/10/17 at 12:00 Diphenhydramine HCl (Benadryl) 25 mg Q4H PRN IM ITCHING OR RASH; Start at 12:00 Ketorolac Tromethamine (Toradol) 15 mg DAILY@06 PRN INJ ADMINSTER BY SURGEON ONLY; Start 05/11/17 at 06:00; Stop 05/15/17 at 05:59 Bupivacaine HCl/ Epinephrine Bitart (Marcaine 0.25%/ Epi (Sdv) 30 ml) 20 ml DAILY@06 PRN INJ ADMINSTER BY SURGEON ONLY; Start 05/11/17 at 06:00; Stop 05/15 at 05:59 Naloxone HCl (Narcan) 0.2 mg Q2M PRN IV DECREASED REPIRATORY RATE; Start at 12:00 Carvedilol (Coreg) 6.25 mg BID PO Last administered on 05/11/17 09:08; Admin Dose 6.25 MG; Start 05/10/17 at 21:00 Prasugrel (Effient) 10 mg DAILY PO ; Start 05/11/17 at 09:00 Temazepam (Restoril) 30 mg HS PRN PO INSOMNIA Last administered on 05/10/17 23 :05; Admin Dose 30 MG; Start 05/10/17 at 21:00 JESSIE OLIVER MD May 11, 2017 19:23
[2017-05-11 20:17] VITALS: BP 99/65; RESP 20
[2017-05-11] MEDS: TEMAZEPAM 15 MG CAP PO PRN (21:50)
[2017-05-11] MEDS: oxyCODONE 5 MG TAB PO PRN (23:59)
[2017-05-12] VITALS (7 sets, daily range): BP systolic 120–143; BP diastolic 68–89; PULSE 53–56; RESP 16–20
[2017-05-12] MEDS: DEXTROSE 5%-LR 1,000 ML IV SCH ×2 (01:01→13:31)
[2017-05-12] MEDS: PANTOPRAZOLE (EC) 40 MG TAB PO SCH (06:00)
[2017-05-12] MEDS: DEXAMETHASONE 4 MG/ML 1 ML INJ IV SCH (06:31)
--- NOTE | 2017-05-12 07:47 | PN ---
Date/Time of Note Date/Time of Note DATE: 05/12/17 TIME: 07:42 Assessment/Plan VTE Prophylaxis VTE Prophylaxis Intervention: ambulation, SCD's, other (ASA 325mg BID daily) Lines/Catheters IV Catheter Type (from Nrsg): Saline Lock Lee in Place (from Nrsg): No Assessment/Plan Assessment/Plan -Hemovac Removed Today -Pain Cocktail Given -Pain Meds as needed -Dress change performed today -OOB with PT -ASA/SCDs for DVT Prophylaxis -Continue monitoring with Internal Medicine -Patient Stable. -Likely D/C home tomorrow (he prefers to be d/c'd to the [facility]) with home health. Subjective 24 Hr Interval Summary 66y/o male POD #2 L TKA. No pain complaints overnight. ROM continues to be improving. Walking with PT. No CP, calf pain or SOB. Plan is to d/c home tomorrow. Constitutional: no complaints Pain Control: well controlled Exam/Review of Systems Vital Signs Vitals Vital Signs Date Time Temp Pulse Resp B/P Pulse Ox O2 Delivery O2 Flow Rate FiO2 05/11/17 20:17 98.6 59 20 99/65 98 05/10/17 16:30 Nasal Cannula 05/10/17 12:05 2.0 Intake and Output 05/11/17 05/11/17 05/12/17 14:59 22:59 06:59 Intake Total 1520 ml 1100 ml Output Total 1380 ml 1180 ml Balance 140 ml -80 ml Exam Free Text/Dictation -Hemovac: Intact 180cc overnight -Pain Cocktail Drains: Intact -Incision: Clean, Dry and Intact without any redness or drainage -5/5 Tibialis Anterior, EHL Gastrocnemius/Soleus and Peroneals -Normal Sensation -Palpable DP/PT, Capillary Refill <2 secs -No Distal Edema -Negative Citlali Sign/No calf pain -Toes Freely Movable Constitutional: alert, oriented, well developed Results Result Diagram: 05/11/17 0444 JOSH HERNANDEZ PA-C May 12, 2017 07:47
--- NOTE | 2017-05-12 08:37 | PN ---
Date/Time of Note Date/Time of Note DATE: 05/12/17 TIME: 08:33 Assessment/Plan VTE Prophylaxis VTE Prophylaxis Intervention: other (asa, effient) Lines/Catheters IV Catheter Type (from Nrsg): Saline Lock Urinary Cath still in place: No Subjective 24 Hr Interval Summary Free Text/Dictation post l tkr. some bleeding noted yesterday, none now. hgb was low has recd one unit. repeat h and h to be drawn this am to make further decisions re transfusion. is on dual anticoagulant, will continue in view of stents etc. no complaint sob or chest pain. pt has chronic vertigo, but no change in dizzyness, none now. vs ok lungs clear, hr ok, no edema plan is to await am lab results. dc to hot in am as his home has stairs and no one to help. Exam/Review of Systems Vital Signs Vitals Vital Signs Date Time Temp Pulse Resp B/P Pulse Ox O2 Delivery O2 Flow Rate FiO2 05/12/17 07:00 98.0 69 20 120/68 100 05/10/17 16:30 Nasal Cannula 05/10/17 12:05 2.0 Intake and Output 05/11/17 05/11/17 05/12/17 15:00 23:00 07:00 Intake Total 1520 ml 1100 ml Output Total 1380 ml 1180 ml Balance 140 ml -80 ml Results Result Diagram: 05/11/17 0444 Results 24 hrs Laboratory Tests Test 05/12/17 06:39 Lab Scanned Report BLOOD TRANSFUSION Medications Medications Current Medications Dextrose/Lactated Ringer's (D5-Lr) 1,000 ml @ 80 mls/hr [id number] IV Last administered on 05/11/17 00:22; Admin Dose 80 MLS/HR; Start 05/10/17 at 11:31 Oxycodone HCl (Roxicodone) 20 mg Q3H PRN PO PAIN LEVEL 8-10; Start 05/10/17 at 12:00 Oxycodone HCl (Roxicodone) 10 mg Q3H PRN PO PAIN LEVEL 4-7 Last administered on 05/11/17 23:59; Admin Dose 10 MG; Start 05/10/17 at 12:00 Miscellaneous Information (Note) NOTE XX ; Start 05/10/17 at 12:00 Aspirin (Ecotrin) 325 mg BID PO ; Start 05/11/17 at 09:00 Dexamethasone (Decadron) 4 mg DAILY@07 IV Last administered on 05/12/17 06:31 ; Admin Dose 4 MG; Start 05/11/17 at 07:00; Stop 05/14/17 at 06:59 Pantoprazole (Protonix Tab) 40 mg DAILY@06 PO ; Start 05/12/17 at 06:00 Docusate Sodium/ Ferrous Fumarate (Samuel-Sequels) 1 tab BID PO Last administered on 05/11/17 21:50; Admin Dose 1 TAB; Start 05/11/17 at 09:00 Docusate Sodium (Colace) 200 mg BID PO Last administered on 05/11/17 21:50; Admin Dose 200 MG; Start 05/11/17 at 09:00; Stop 05/14/17 at 08:59 Simethicone (Mylicon) 80 mg TID PRN PO DISTENSION/GAS/BLOATING; Start 05/10/17 at 12:00 Senna/Docusate Sodium (Senokot-S) 2 tab BID PRN PO CONSTIPATION; Start at 12:00 Magnesium Hydroxide (Milk Of Mag) 30 ml HS PRN PO CONSTIPATION; Start 05/10/17 at 12:00 Bisacodyl (Dulcolax Supp) 10 mg DAILY PRN [place] CONSTIPATION; Start 05/10/17 at 12 :00 Sodium Biphosphate/ Sodium Phosphate (Fleet Enema) 133 ml DAILY PRN [place] CONSTIPATION; Start 05/10/17 at 12:00 Diphenhydramine HCl (Benadryl) 25 mg Q4H PRN IM ITCHING OR RASH; Start at 12:00 Ketorolac Tromethamine (Toradol) 15 mg DAILY@06 PRN INJ ADMINSTER BY SURGEON ONLY; Start 05/11/17 at 06:00; Stop 05/15/17 at 05:59 Bupivacaine HCl/ Epinephrine Bitart (Marcaine 0.25%/ Epi (Sdv) 30 ml) 20 ml DAILY@06 PRN INJ ADMINSTER BY SURGEON ONLY; Start 05/11/17 at 06:00; Stop 05/15 at 05:59 Naloxone HCl (Narcan) 0.2 mg Q2M PRN IV DECREASED REPIRATORY RATE; Start 8/16/ 17 at 12:00 Carvedilol (Coreg) 6.25 mg BID PO Last administered on 05/11/17 09:08; Admin Dose 6.25 MG; Start 05/10/17 at 21:00 Prasugrel (Effient) 10 mg DAILY PO ; Start 05/11/17 at 09:00 Temazepam (Restoril) 30 mg HS PRN PO INSOMNIA Last administered on 05/11/17 21 :50; Admin Dose 30 MG; Start 05/10/17 at 21:00 JOHN GUILLERMO MD May 12, 2017 08:37
[2017-05-12] MEDS: PRASUGREL HYDROCHLORIDE 10 MG TABLET PO SCH (09:42)
[2017-05-12] MEDS: ASPIRIN (EC) 325 MG TAB PO SCH ×2 (09:44→21:07)
[2017-05-12] MEDS: DOCUSATE SODIUM 100 MG CAP PO SCH ×2 (09:44→21:07)
[2017-05-12] MEDS: FERROUS FUMARATE (SR) TAB PO SCH ×2 (09:44→21:07)
[2017-05-12] MEDS: oxyCODONE 5 MG TAB PO PRN ×2 (09:50→15:06)
[2017-05-12 09:54] LABS: ABNORMAL IP MESSAGE 1; BASOPHILS % 0.1 % (0.0-2.0); EOSINOPHILS % 0.3 % (0.0-7.0); HEMATOCRIT 26.5 % (42.0-52.0); LYMPHOCYTES # 0.4 10^3/ul (0.8-2.9); MEAN CORPUSCULAR HEMOGLOBIN 32.4 pg (29.0-33.0); MEAN CORPUSCULAR VOLUME 95.3 fl (82.0-101.0); MEAN PLATELET VOLUME 10.6 fl (7.4-10.4); MONOCYTE # 0.5 10^3/ul (0.3-0.9); MONOCYTES % 6.6 % (0.0-11.0); NEUTROPHILS % 86.3 % (39.0-77.0); PLATELET COUNT 129 10^3/UL (140-415); POSITIVE DIFF @See below; RED BLOOD COUNT 2.78 10^6/ul (4.70-6.10); RED CELL DISTRIBUTION WIDTH 13.3 % (11.5-14.5); WHITE BLOOD COUNT 6.8 10^3/ul (4.8-10.8)
[2017-05-12] MEDS: LORAZEPAM 1 MG TAB PO PRN (21:07)
[2017-05-12] MEDS: TEMAZEPAM 15 MG CAP PO PRN (22:46)
[2017-05-13] MEDS: DEXTROSE 5%-LR 1,000 ML IV SCH (02:01)
[2017-05-13 02:23] VITALS: BP 130/69; RESP 20
[2017-05-13] MEDS: DEXAMETHASONE 4 MG/ML 1 ML INJ IV SCH (05:59)
[2017-05-13] MEDS: PANTOPRAZOLE (EC) 40 MG TAB PO SCH (05:59)
[2017-05-13] MEDS: oxyCODONE 5 MG TAB PO PRN (05:59)
[2017-05-13 07:00] VITALS: BP 122/76; RESP 18
--- NOTE | 2017-05-13 08:12 | PN ---
Date/Time of Note Date/Time of Note DATE: 05/13/17 TIME: 08:10 Assessment/Plan VTE Prophylaxis VTE Prophylaxis Intervention: ambulation, SCD's Lines/Catheters IV Catheter Type (from Nrsg): Saline Lock Lee in Place (from Nrsg): No Assessment/Plan Assessment/Plan -Pain Cocktail Given -Pain Meds as needed -Dress change performed today -We will defer to developer analyst for DVT Prophylaxis x 6 weeks outpatient discussed. We will defer to the recommendation of developer analyst on when patient can start his anticoagulation therapy and if it is okay to take with aspirin. -Continue monitoring as outpatient on discharge -Follow-up at scheduled postop outpatient appointment or sooner if there is any issue. -Tegaderm dressings given with specific instructions to use as outpatient to keep wound dry until lisseth are moved around 10 days. -Patient Stable -Discharge to Home with home health Subjective 24 Hr Interval Summary 66-year-old male postop day 3 status post left total knee replacement. Pain continues to be well controlled. Patient up and walking throughout the hallways. Denies any shortness of breath, chest tightness or pain. Patient received 2 units of blood yesterday due to low blood levels and now hemoglobin has improved. Plan is to discharge to hotel with home health today. Exam/Review of Systems Vital Signs Vitals Vital Signs Date Time Temp Pulse Resp B/P Pulse Ox O2 Delivery O2 Flow Rate FiO2 05/13/17 07:00 97.7 52 18 122/76 96 05/12/17 15:13 Room Air 05/10/17 12:05 2.0 Intake and Output 05/12/17 05/12/17 05/13/17 15:00 23:00 07:00 Intake Total 282 ml 720 ml Output Total 800 ml Balance 282 ml -80 ml Exam Free Text/Dictation -Hemovac: Removed -Pain Cocktail Drains: Intact -Incision: Clean, Dry and Intact without any redness or drainage -5/5 Tibialis Anterior, EHL Gastrocnemius/Soleus and Peroneals -Normal Sensation -Palpable DP/PT, Capillary Refill <2 secs -No Distal Edema -Negative Citlali Sign/No calf pain -Toes Freely Movable Constitutional: alert, oriented, well developed Results Result Diagram: 05/12/17 0937 JOSH HERNANDEZ PA-C May 13, 2017 08:12
[2017-05-13] MEDS: ASPIRIN (EC) 325 MG TAB PO SCH (08:32)
[2017-05-13] MEDS: PRASUGREL HYDROCHLORIDE 10 MG TABLET PO SCH (08:32)
[2017-05-13] MEDS: FERROUS FUMARATE (SR) TAB PO SCH (08:32)
[2017-05-13] MEDS: DOCUSATE SODIUM 100 MG CAP PO SCH (08:32)
[2017-05-13 08:33] LABS: BASOPHILS % 0.4 % (0.0-2.0); EOSINOPHILS # 0.1 10^3/ul (0.0-0.5); EOSINOPHILS % 1.4 % (0.0-7.0); HEMATOCRIT 27.5 % (42.0-52.0); HEMOGLOBIN 9.3 g/dl (14.0-18.0); LYMPHOCYTES % 18.2 % (15.0-51.0); MEAN CORPUSCULAR HGB CONC 33.8 g/dl (32.0-37.0); MEAN CORPUSCULAR VOLUME 94.5 fl (82.0-101.0); MEAN PLATELET VOLUME 10.5 fl (7.4-10.4); MONOCYTE # 0.8 10^3/ul (0.3-0.9); MONOCYTES % 14.5 % (0.0-11.0); NEUTROPHILS % 64.6 % (39.0-77.0); PLATELET COUNT 133 10^3/UL (140-415); RED BLOOD COUNT 2.91 10^6/ul (4.70-6.10); RED CELL DISTRIBUTION WIDTH 13.6 % (11.5-14.5); WHITE BLOOD COUNT 5.7 10^3/ul (4.8-10.8)
[2017-05-13] MEDS ORDERED: ASPI325T32 PO (10:38)
[2017-05-13] MEDS ORDERED: FER325 PO (10:38)
--- NOTE | 2017-05-13 10:40 | CONS ---
Date/Time of Note Date/Time of Note DATE: 05/13/17 TIME: 10:38 Assessment/Plan Assessment/Plan Problems: (1) Status post total left knee replacement Status: Acute Comment: Postop and appears to be doing well. He has been cleared for discharge by the orthopedic surgeons who requested I take care of his prescriptions. Those are printed (2) CAD (coronary artery disease) Status: Chronic Comment: Stable and quiescent is gone through surgery without any complications resume Effient Qualifiers: Coronary Disease-Associated Artery/Lesion type: [place] artery [place] vs. transplanted heart: [place] heart Associated angina: without angina Qualified Code: I25.10 - Coronary artery disease involving [place] coronary artery of [place] heart without angina pectoris (3) Postoperative anemia due to acute blood loss Status: Acute Comment: Noted. He will have 1 month of oral iron supplementation. Further evaluation will be as per his primary care physician Dr. Blackwell (4) Degenerative arthritis Status: Chronic Comment: Postoperatively and doing well. He reports that he will ultimately be back to take care of the right knee. Qualifiers: Osteoarthritis location: knee Osteoarthritis type: primary Laterality: left Qualified Code: M17.12 - Primary osteoarthritis of left knee Consultation Date/Type/Reason Admit Date/Time May 10, 2017 at 05:57 Initial Consult Date Type of Consultation: Internal Medicine Reason for Consultation Medical problems and postop anemia Referring Provider: LEXIE MAHER MD 24 HR Interval Summary Free Text/Dictation Patient reports is concerned about his anemia and whether or not he should do any dietary maneuvers Constitutional: no complaints Detailed Summary Respiratory: no complaints Cardiovascular: no complaints Exam/Review of Systems Vital Signs Vitals Vital Signs Date Time Temp Pulse Resp B/P Pulse Ox O2 Delivery O2 Flow Rate FiO2 05/13/17 07:00 97.7 52 18 122/76 96 05/12/17 15:13 Room Air 05/10/17 12:05 2.0 Intake and Output 05/12/17 05/12/17 05/13/17 15:00 23:00 07:00 Intake Total 282 ml 720 ml Output Total 800 ml Balance 282 ml -80 ml Exam Constitutional: alert, oriented Respiratory: clear to auscultation, normal air movement Cardiovascular: nl pulses, regular rate and rhythm Results Result Diagram: 05/13/17 0804 Results 24 hrs Laboratory Tests Test 05/13/17 08:04 05/13/17 08:47 White Blood Count 5.7 Red Blood Count 2.91 L Hemoglobin 9.3 L Hematocrit 27.5 L Mean Corpuscular Volume 94.5 Mean Corpuscular Hemoglobin 32.0 Mean Corpuscular Hemoglobin Concent 33.8 Red Cell Distribution Width 13.6 Platelet Count 133 L Mean Platelet Volume 10.5 H Neutrophils % 64.6 Lymphocytes % 18.2 Monocytes % 14.5 H Eosinophils % 1.4 Basophils % 0.4 Nucleated Red Blood Cells % 0.0 Neutrophils # (Manual) 4 Lymphocytes # 1.0 Monocytes # 0.8 Eosinophils # 0.1 Basophils # 0.0 Nucleated Red Blood Cells # 0.0 Lab Scanned Report BLOOD TRANSFUSION Medications Medications Current Medications Dextrose/Lactated Ringer's (D5-Lr) 1,000 ml @ 80 mls/hr [id number] IV Last administered on 05/11/17 00:22; Admin Dose 80 MLS/HR; Start 05/10/17 at 11:31 Oxycodone HCl (Roxicodone) 20 mg Q3H PRN PO PAIN LEVEL 8-10; Start 05/10/17 at 12:00 Oxycodone HCl (Roxicodone) 10 mg Q3H PRN PO PAIN LEVEL 4-7 Last administered on 05/13/17 05:59; Admin Dose 10 MG; Start 05/10/17 at 12:00 Miscellaneous Information (Note) NOTE XX ; Start 05/10/17 at 12:00 Aspirin (Ecotrin) 325 mg BID PO Last administered on 05/13/17 08:32; Admin Dose 325 MG; Start 05/11/17 at 09:00 Dexamethasone (Decadron) 4 mg DAILY@07 IV Last administered on 05/13/17 05:59 ; Admin Dose 4 MG; Start 05/11/17 at 07:00; Stop 05/14/17 at 06:59 Pantoprazole (Protonix Tab) 40 mg DAILY@06 PO Last administered on 05/13/17 05 :59; Admin Dose 40 MG; Start 05/12/17 at 06:00 Docusate Sodium/ Ferrous Fumarate (Samuel-Sequels) 1 tab BID PO Last administered on 05/13/17 08:32; Admin Dose 1 TAB; Start 05/11/17 at 09:00 Docusate Sodium (Colace) 200 mg BID PO Last administered on 05/13/17 08:32; Admin Dose 200 MG; Start 05/11/17 at 09:00; Stop 05/14/17 at 08:59 Simethicone (Mylicon) 80 mg TID PRN PO DISTENSION/GAS/BLOATING; Start 05/10/17 at 12:00 Senna/Docusate Sodium (Senokot-S) 2 tab BID PRN PO CONSTIPATION; Start at 12:00 Magnesium Hydroxide (Milk Of Mag) 30 ml HS PRN PO CONSTIPATION; Start 05/10/17 at 12:00 Bisacodyl (Dulcolax Supp) 10 mg DAILY PRN [place] CONSTIPATION; Start 05/10/17 at 12 :00 Sodium Biphosphate/ Sodium Phosphate (Fleet Enema) 133 ml DAILY PRN [place] CONSTIPATION; Start 05/10/17 at 12:00 Diphenhydramine HCl (Benadryl) 25 mg Q4H PRN IM ITCHING OR RASH; Start at 12:00 Ketorolac Tromethamine (Toradol) 15 mg DAILY@06 PRN INJ ADMINSTER BY SURGEON ONLY; Start 05/11/17 at 06:00; Stop 05/15/17 at 05:59 Bupivacaine HCl/ Epinephrine Bitart (Marcaine 0.25%/ Epi (Sdv) 30 ml) 20 ml DAILY@06 PRN INJ ADMINSTER BY SURGEON ONLY; Start 05/11/17 at 06:00; Stop 05/15 at 05:59 Naloxone HCl (Narcan) 0.2 mg Q2M PRN IV DECREASED REPIRATORY RATE; Start at 12:00 Carvedilol (Coreg) 6.25 mg BID PO Last administered on 05/13/17 08:33; Admin Dose 6.25 MG; Start 05/10/17 at 21:00 Prasugrel (Effient) 10 mg DAILY PO Last administered on 05/13/17 08:32; Admin Dose 10 MG; Start 05/11/17 at 09:00 Temazepam (Restoril) 30 mg HS PRN PO INSOMNIA Last administered on 05/12/17 22 :46; Admin Dose 30 MG; Start 05/10/17 at 21:00 JUDY BRYSON MD May 13, 2017 10:40
--- NOTE | 2017-05-14 07:47 | DS ---
Date/Time of Note Date/Time of Note DATE: 05/14/17 TIME: 07:43 Discharge Summary Admission/Discharge Info Admit Date/Time May 10, 2017 at 05:57 Discharge Date/Time May 13, 2017 at 13:17 Discharge Diagnosis Status post left total knee arthroplasty Patient Condition: Stable Hospital Course On the day of admission, the patient underwent left total knee arthroplasty Intraoperative complications: None Postoperative complications: None The patient was given prophylactic antibiotics and anticoagulants. On the day of surgery and first postoperative day patient was started on gait training and was taught usual restrictions following knee replacement Suction drain removed on the first postoperative day and the dressings were changed. The wound was found to be clean and healing well. There was no sign of infection. Pain cocktail given. On the second postoperative day, patient continued with inpatient PT. Dressings were changed. Wound was found to be clean and healing well. No signs of infection. Pain cocktail given. Blood transfusion due to low hemoglobin and hematocrit levels. Patient was feeling much better after transfusion. On the day of discharge, the wound was clean and healing well; there was no sign of infection. The dressings were changed. Discharge Temperature: 97.7 Discharge White Blood Cell Count: 5.7 Discharge Hemoglobin: 9.3 The patient was discharged home with home health ([facility] per patient choice). Arrangements were made for visiting nurses and home health/physical therapy. Tegaderm with pad also provided for patient. Instructions given on how to use to keep wound dry while showering. Patient may discontinue use of Tegaderm with pad after lisseth have been removed around 10 days postoperatively. The patient will be seen in office at scheduled postoperative evaluation date given on their preoperative exam. Should patient complain of any problems prior to scheduled postoperative evaluation date, they may call into outpatient clinic to determine if they need to be scheduled at sooner appointment to be seen immediately if needed. Discharge medications: As per medication reconciliation form Diet: Same as preadmission diet. This is Josh Saldana PA-C dictating discharge summary for Dr. Herber Morel. Home Meds Active Scripts Ferrous Sulfate* (Ferrous Sulfate*) 325 Mg Tabec, 325 MG PO DAILY for 30 Days, TAB Prov:JUDY BRYSON MD 05/13/17 Aspirin (Aspir-Mckenzie) 325 Mg Tablet.dr, 325 MG PO BID for 21 Days Prov:JUDY BRYSON MD 05/13/17 Reported Medications Temazepam* (Temazepam*) 15 Mg Capsule, 15 MG PO HS Y for INSOMNIA, CAP 05/10/17 Lorazepam* (Lorazepam*) 1 Mg Tablet, 2 MG PO Q6 Y for ANXIETY, #60 TAB 05/10/17 Tramadol HCl (Tramadol HCl) 50 Mg Tablet, 50 MG PO Q6H Y for PAIN, #120 TAB 05/10/17 Amphet Nqv-Dqedcl-P-Amphet (Adderall) 30 Mg Tablet, 30 MG PO DAILY, TAB 05/10/17 Ubidecarenone (Coq-10) 30 Mg Capsule, 30 MG PO DAILY, CAP 05/10/17 [place]-3 Fatty Acids/Fish Oil (Fish Oil 1,000 mg Capsule) 1 Each Capsule, 1 EACH PO, CAP 05/10/17 Prasugrel Hydrochloride* (Effient*) 10 Mg Tablet, 10 MG PO DAILY, TAB 05/10/17 Rosuvastatin Calcium (Rosuvastatin Calcium) 20 Mg Tablet, 20 MG PO DAILY, TAB 05/10/17 Ranolazine* (Ranexa*) 500 Mg Tab.sr.12h, 500 MG PO Q12, TAB 05/10/17 Valsartan* (Diovan*) 320 Mg Tablet, 320 MG PO DAILY, TAB 05/10/17 Carvedilol* (Coreg*) 6.25 Mg Tablet, 6.25 MG PO BID, #60 TAB 05/10/17 Aspirin* (Aspirin* EC) 81 Mg Tablet.dr, 81 MG PO DAILY, TAB 05/10/17 Discontinued Reported Medications Ranitidine Hcl* (Zantac*) 150 Mg Tablet, 150 MG PO DAILY, #60 TAB 05/10/17 Follow-up Plan Postoperative examination date provided on patient's preoperative visit. Primary Care Provider Lakhwinder Blackwell Pending Labs Laboratory Tests Test 05/13/17 08:04 05/13/17 08:47 White Blood Count 5.710^3/ul (4.8-10.8) Red Blood Count 2.9110^6/ul (4.70-6.10) Hemoglobin 9.3g/dl (14.0-18.0) Hematocrit 27.5% (42.0-52.0) Mean Corpuscular Volume 94.5fl (82.0-101.0) Mean Corpuscular Hemoglobin 32.0pg (29.0-33.0) Mean Corpuscular Hemoglobin Concent 33.8g/dl (32.0-37.0) Red Cell Distribution Width 13.6% (11.5-14.5) Platelet Count 96010^3/UL (140-415) Mean Platelet Volume 10.5fl (7.4-10.4) Neutrophils % 64.6% (39.0-77.0) Lymphocytes % 18.2% (15.0-51.0) Monocytes % 14.5% (0.0-11.0) Eosinophils % 1.4% (0.0-7.0) Basophils % 0.4% (0.0-2.0) Nucleated Red Blood Cells % 0.0/100WBC (0.0-0.0) Neutrophils # (Manual) 410^3/ul (1.7-7.5) Lymphocytes # 1.010^3/ul (0.8-2.9) Monocytes # 0.810^3/ul (0.3-0.9) Eosinophils # 0.110^3/ul (0.0-0.5) Basophils # 0.010^3/ul (0.0-0.1) Nucleated Red Blood Cells # 0.010^3/ul (0.0-0.0) Lab Scanned Report BLOOD [id number] JOSH HERNANDEZ PA-C May 14, 2017 07:47
== END 2017-05-13 13:17 | disposition home health service (06) | DRG 470 ==
LOC: REC 05:57 → MS1 13:14
PROC: 0SRD0J9 Replacement of Left Knee Joint with Synthetic Substitute, Cemented, Open Approach (ICD-10-PCS; principal; 2017-05-10 07:30)
PROC: 30233N1 Transfusion of Nonautologous Red Blood Cells into Peripheral Vein, Percutaneous Approach (ICD-10-PCS; 2017-05-11)
DX: M17.12 Unilateral primary osteoarthritis, left knee (principal); D62 Acute posthemorrhagic anemia; J44.9 Chronic obstructive pulmonary disease, unspecified; I10 Essential (primary) hypertension; I25.10 Atherosclerotic heart disease of native coronary artery without angina pectoris; E11.9 Type 2 diabetes mellitus without complications; E78.5 Hyperlipidemia, unspecified; Z95.5 Presence of coronary angioplasty implant and graft; Z85.528 Personal history of other malignant neoplasm of kidney; Z87.891 Personal history of nicotine dependence; Z79.02 Long term (current) use of antithrombotics/antiplatelets
CPT/HCPCS: 36430; 73560; 82962; 85025; 86850; 86900; 86901; 86920; 87070; 88304; 97110; 97116; 97162; 97166; 97530; 97535; C1776; J0690; J1100; J1885; J2250; J2405; J2710; J2795; J3010; J3370; J7120; J7121; P9016

== ENCOUNTER → 2017-05-31 | Outpatient (CLI) | payer MEDICARE, OTHER ==
[~2017-05-31] MED LIST changes: +ADDE30 PO; +ASPI325T32 PO; +CARV6.25 PO; +FER325 PO; +LORA1TAB PO; +OMEG-135 PO; +PRAS10TA6 PO; -RANI150T9 PO; +RANO500T2 PO; +ROSU20TA27 PO; +TEMA15CA PO; +TRAM50TA2 PO; +UBID30CA12 PO; +VALS320T11 PO
--- NOTE | 2017-05-31 15:32 | PN ---
Date/Time of Note Date/Time of Note DATE: 05/31/17 TIME: 15:28 Outpatient Progress Note Chief Complaint 3 week s/p L TKA HPI 66-year-old male presents today for three-week postoperative visit status post left total knee arthroplasty. Patient does complain of pain, typically after physical therapy or activity. Denies any falls or injury. Denies any chest pain/tightness. Denies any calf pain. Patient does state that he is having difficulty achieving full extension and improved flexion.Presents today for postoperative visit. Review of Systems Const: No Fever, no chills, no Fatigue, normal appetite, no diaphoresis. Resp: No SOB, no wheezing, no chest pain. CV: No chest pain, no palpitaions, no GODOY. Physical Exam Blood pressure is 91/56, temperature is 98.4, pulse is 89, respiratory rate is 12, height is 5 foot 8 inches, weight is 170 pounds General Appearance: well-developed, well-nourished, in no acute distress. Left knee: Surgical wound is clean dry and intact. Mild swelling to the knee. No tenderness to palpation on examination today. Normal sensory examination to light touch. About 10-15 lack from full extension. Patient is able to flex up to 98 on goniometer.5/5 strength on resistance. Pain with passive range of motion past 100.While standing, knee stays in 10 extension lag as he is not able to fully extend. Use a single-point cane for assisted ambulation. Allergies Coded Allergies: acetaminophen (Unverified Allergy, Unknown, 05/09/17) ciprofloxacin (Unverified Allergy, Unknown, 05/09/17) Assessment/Plan Problems: (1) Status post total left knee replacement -Wound healing well after staple removal. No signs of infection. -Continue ASA 325 mg twice daily for DVT prophylaxis until 6 weeks status post surgery. -Prescription for Percocet 10/325 mg 1 tab p.o. every 6 hours #45 tablets provided today. Patient was advised to take medication prior to initiating physical therapy. -Lengthy discussion regarding at home physical therapy and education with exercises provided for patient today.Discussion on techniques on how to improve range of motion while at home a couple times a day also discussed with patient in detail. -No signs of DVT. -Patient progressing well. -Follow-up at 6 week postop appointment. X-rays will be performed at 6 weeks postoperative appointment. -Patient made aware that they may follow-up sooner, should they experience any issues or complications as we will be glad to see them. -Order for outpatient physical therapy given today with focus on improved range of motion. Antibiotic card provided for patient. Patient made aware that dental prophylaxis will be necessary prior to any dental procedure for the remainder of their lifetime. Patient is aware that they must contact their dentist prior to any procedure to inform them of previous joint replacement with prosthesis implant so appropriate antibiotic may be prescribed to lower risk of joint infection status post surgery. Card will also serve as confirmation should patient be traveling and have to go through security such as at an airport. Medications Home Meds Active Scripts Ferrous Sulfate* (Ferrous Sulfate*) 325 Mg Tabec, 325 MG PO DAILY for 30 Days, TAB Prov:JUDY BRYSON MD 05/13/17 Aspirin (Aspir-Mckenzie) 325 Mg Tablet.dr, 325 MG PO BID for 21 Days Prov:JUDY BRYSON MD 05/13/17 Reported Medications Temazepam* (Temazepam*) 15 Mg Capsule, 15 MG PO HS Y for INSOMNIA, CAP 05/10/17 Lorazepam* (Lorazepam*) 1 Mg Tablet, 2 MG PO Q6 Y for ANXIETY, #60 TAB 05/10/17 Tramadol HCl (Tramadol HCl) 50 Mg Tablet, 50 MG PO Q6H Y for PAIN, #120 TAB 05/10/17 Amphet Whe-Jxnqww-E-Amphet (Adderall) 30 Mg Tablet, 30 MG PO DAILY, TAB 05/10/17 Ubidecarenone (Coq-10) 30 Mg Capsule, 30 MG PO DAILY, CAP 05/10/17 [place]-3 Fatty Acids/Fish Oil (Fish Oil 1,000 mg Capsule) 1 Each Capsule, 1 EACH PO, CAP 05/10/17 Prasugrel Hydrochloride* (Effient*) 10 Mg Tablet, 10 MG PO DAILY, TAB 05/10/17 Rosuvastatin Calcium (Rosuvastatin Calcium) 20 Mg Tablet, 20 MG PO DAILY, TAB 05/10/17 Ranolazine* (Ranexa*) 500 Mg Tab.sr.12h, 500 MG PO Q12, TAB 05/10/17 Valsartan* (Diovan*) 320 Mg Tablet, 320 MG PO DAILY, TAB 05/10/17 Carvedilol* (Coreg*) 6.25 Mg Tablet, 6.25 MG PO BID, #60 TAB 05/10/17 Aspirin* (Aspirin* EC) 81 Mg Tablet., 81 MG PO DAILY, TAB 05/10/17 JOSH HERNANDEZ PA-C May 31, 2017 15:32
== END | disposition home or self-care (01) ==
LOC: HKI 14:24
DX: M25.562 Pain in left knee (principal); Z09 Encounter for follow-up examination after completed treatment for conditions other than malignant neoplasm; Z96.652 Presence of left artificial knee joint

== ENCOUNTER → 2017-06-21 | Outpatient (CLI) | payer MEDICARE, OTHER ==
--- NOTE | 2017-06-21 14:56 | PN ---
Date/Time of Note Date/Time of Note DATE: 06/21/17 TIME: 14:46 Outpatient Progress Note Chief Complaint 6 weeks postop status post left total knee replacement HPI 66-year-old male presents today for follow-up status post left total knee replacement performed on 05/10/2017. Patient states that he was experiencing episodes of increased pain with physical therapy and activity a couple weeks ago but over the past couple of days his pain is subsided. Currently his average pain is minimal. He continues with stiffness in regards to extension.Denies any calf pain, shortness of breath or chest pain. In regards to the knee he continues with outpatient physical therapy which she states has been going well.Denies any significant improvement in regards to his functionality but also denies any significant complaints or limiting activities. Review of Systems Const: No Fever, no chills, no Fatigue, normal appetite, no diaphoresis. Resp: No SOB, no wheezing, no chest pain. CV: No chest pain, no palpitaions, no GODOY. Physical Exam Blood pressure is 118/72, temperature is 98.8, pulse is 76, respiratory rate is 12, height is 5 foot 8 inches, weight is 170 pounds General Appearance: well-developed, well-nourished, in no acute distress. Left knee: Surgical wound is healing well without any signs of infection. No tenderness to palpation on exam today. Gait showing slight limp and he is using single-point cane for assisted ambulation. With range of motion, patient continues with about 10-15 extension lag. Patient is able to flex initially up to 90.After stretching flexion improves to 100 actively to the left knee. Discomfort with maximum point of flexion today. Normal sensory examination to light touch. About 100 flexion with passive range of motion as well and 10 lag from full extension on passive range of motion. Negative Homans sign. 5/5 strength on resistance. Imaging X-ray of the Left knee performed on 06/21/2017 showing all components appearing well aligned, attached and integrated to the bone. No signs of any lucency between metal and bone. Allergies Coded Allergies: acetaminophen (Unverified Allergy, Unknown, 05/09/17) ciprofloxacin (Unverified Allergy, Unknown, 05/09/17) Assessment/Plan Problems: (1) Status post total left knee replacement -Patient Seems to be struggling in regards to improvement of range of motion as he is able to achieve up to 100. Discussion regarding increased scar formation was had with patient. Patient was advised to follow-up in the next 2-3 weeks for repeat evaluation to see if range of motion has improved especially with physical therapy. He was also advised to do at home therapy on a daily basis multiple times a day to see if range of motion can improve. If range of motion does not improve and he continues with stiffness, strong consideration will be had on follow-up range of motion check to see if manipulation under anesthesia is warranted. -Surgical wound continues to heal well. -No signs of infection or DVT on exam. -X-rays showing no abnormalities in regards to prosthesis attachment to bone. -Antibiotic prophylaxis card provided today. -Follow-up In 2-3 weeks with myself or Dr. Morel, the patient was made aware to follow-up on a day where Dr. Morel is also performing clinic that way he can also determine whether manipulation under anesthesia is necessary. Dental prophylaxis discussed in detail today. Patient given prophylaxis card with antibiotic options. Should patient have allergy to specific medication ( eg penicillin) alternative options are also provided on the card. Patient is aware that antibiotics should be taken prior to any procedures to prevent increased risk of infection to the joint. Patient is aware that this will be for the rest of their life. Patient states understanding and compliance. Medications Home Meds Active Scripts Ferrous Sulfate* (Ferrous Sulfate*) 325 Mg Tabec, 325 MG PO DAILY for 30 Days, TAB Prov:JUDY BRYSON MD 05/13/17 Aspirin (Aspir-Mckenzie) 325 Mg Tablet.dr, 325 MG PO BID for 21 Days Prov:JUDY BRYSON MD 05/13/17 Reported Medications Temazepam* (Temazepam*) 15 Mg Capsule, 15 MG PO HS Y for INSOMNIA, CAP 05/10/17 Lorazepam* (Lorazepam*) 1 Mg Tablet, 2 MG PO Q6 Y for ANXIETY, #60 TAB 05/10/17 Tramadol HCl (Tramadol HCl) 50 Mg Tablet, 50 MG PO Q6H Y for PAIN, #120 TAB 05/10/17 Amphet Ydy-Tdmneh-Z-Amphet (Adderall) 30 Mg Tablet, 30 MG PO DAILY, TAB 05/10/17 Ubidecarenone (Coq-10) 30 Mg Capsule, 30 MG PO DAILY, CAP 05/10/17 [place]-3 Fatty Acids/Fish Oil (Fish Oil 1,000 mg Capsule) 1 Each Capsule, 1 EACH PO, CAP 05/10/17 Prasugrel Hydrochloride* (Effient*) 10 Mg Tablet, 10 MG PO DAILY, TAB 05/10/17 Rosuvastatin Calcium (Rosuvastatin Calcium) 20 Mg Tablet, 20 MG PO DAILY, TAB 05/10/17 Ranolazine* (Ranexa*) 500 Mg Tab.sr.12h, 500 MG PO Q12, TAB 05/10/17 Valsartan* (Diovan*) 320 Mg Tablet, 320 MG PO DAILY, TAB 05/10/17 Carvedilol* (Coreg*) 6.25 Mg Tablet, 6.25 MG PO BID, #60 TAB 05/10/17 Aspirin* (Aspirin* EC) 81 Mg Tablet., 81 MG PO DAILY, TAB 05/10/17 JOSH HERNANDEZ PA-C Jun 21, 2017 14:56
--- NOTE | 2017-06-21 23:29 | RADRPT ---
PROCEDURE: Left knee radiographs. CLINICAL INDICATION: Left knee pain. Postop. TECHNIQUE: Three views. Weight bearing. Frontal, lateral, and patellar view. COMPARISON: 05/10/2017. FINDINGS: There is no fracture or dislocation. Anterior skin lisseth and surgical drains have been removed. There is a small amount of fluid in the suprapatellar bursa. There is a total left knee constrained arthroplasty which appears satisfactory. There is no lytic or blastic lesion. IMPRESSION: 1. Anterior skin lisseth and surgical drains removed. 2. Small amount of fluid in the suprapatellar bursa. 3. Otherwise unremarkable postoperative appearance of the left knee. RPTAT: QQ .Romaine Mohamud MD, MD Date Time Electronically viewed and signed by .Romaine Mohamud MD, on 06/21/2017 23:29 .R/
== END | disposition home or self-care (01) ==
LOC: HKI 14:12
DX: Z47.1 Aftercare following joint replacement surgery (principal); Z96.652 Presence of left artificial knee joint

== ENCOUNTER → 2017-07-20 | Outpatient (CLI) | END | disposition home or self-care (01) ==

== ENCOUNTER → 2017-08-10 | Outpatient (CLI) | payer MEDICARE, OTHER ==
--- NOTE | 2017-08-10 20:06 | HKNOTE ---
DATE OF SERVICE: 08/10/2017 HISTORY OF MAIN COMPLAINT: The patient underwent a left knee replacement on 05/10/2017. He has mad e slow progress with the recovery, in as much as the knee range of motion is less than expected and hopeful. At his office visit on 06/21/2017, I recommended a manipulation of the knee under general anesthetic , but he declined. He felt that working hard with physical therapy would give him back his range of motion. The patient had an operative arthroscopy on his right knee about 10 years ago. He states that the martir downey became very stiff after that and he had to have a second operative arthroscopy "to remove his sc ar tissue." He wonders if that might not be useful in this case. He was advised that there have be en numerous studies that have shown that there is not much that can be done arthroscopically. PHYSICAL EXAMINATION: Today, the knee lacks at least 10 degrees of extension. Flexion is to about 95 degrees. No external sign of infection or inflammation. He walks without a walking aid, but he walks with his knee "stiff." Temperature is 97.7. DISCUSSION: The patient states, "I have had a very low pain tolerance in the last 2 years" since I went through my various medical problems. He has been taking his pain medications before physical therapy, but "They don't seem to be doing en ough." He shows me a list of exercises given to him by the physical therapist including photographs of the activity. Almost every one of the activities that he showed me, in my opinion, it would be pretty u seless in trying to improve the range of motion of his knee. I recommend that he have the manipulation of the knee. The patient almost seemed to have a minor emotional breakdown at the suggestion and I had to talk to him for about 20 minutes to try and get him to calm down and agree to the manipulation. The proced ure and some of the major possible complications including possibly no improvement in the range of m otion, possibly fracture of bone, possibly damage to the implant, and possibly ruptured tendon. The patient is agreeable now to proceeding with manipulation. He is at 3 months following knee repl acement and this is generally the outer limit of where manipulation seems to be of any benefit. The patient's procedure will be scheduled to be performed next week. Dictated By: LEXIE HURD/NTS Conf#: [id number] DID#: [id number]
== END | disposition home or self-care (01) ==
LOC: HKI 10:01
DX: Z47.1 Aftercare following joint replacement surgery (principal); Z96.653 Presence of artificial knee joint, bilateral

== ENCOUNTER 2017-08-16 07:12 | Day surgery (SDC) | payer MEDICARE, OTHER ==
[2017-08-16] VITALS (15 sets, daily range): BP systolic 108–147; BP diastolic 72–96; PULSE 54–86; RESP 11–28; Ht 153.7 cm; Wt 71.8 kg
[~2017-08-16] VITALS: Ht 153.7 cm; Wt 71.8 kg
[2017-08-16] MEDS ORDERED: OXYC-209 PO (07:56)
[2017-08-16] MEDS ORDERED: BROM500T2 PO (07:57)
[2017-08-16] MEDS ORDERED: LACT1CAP49 PO (07:57)
[2017-08-16] MEDS ORDERED: VALS80TA2 PO (07:58)
[2017-08-16] MEDS ORDERED: LORA1TAB PO (07:58)
[2017-08-16] MEDS ORDERED: TEMA30CA PO (07:59)
[2017-08-16] MEDS ORDERED: AMPH20CA PO (07:59)
[2017-08-16] MEDS ORDERED: DEXAMETHASONE 4 MG/ML 1 ML INJ IV ONE (08:30)
[2017-08-16] MEDS ORDERED: CELECOXIB 200 MG CAP PO ONE (08:30)
[2017-08-16] MEDS ORDERED: LANSOPRAZOLE 30 MG CAP PO ONE (08:30)
[2017-08-16] MEDS ORDERED: LACTATED RINGER'S 1,000 ML IV* SCH (08:30)
[2017-08-16] MEDS ORDERED: VANCOMYCIN 1 GM (PMX) 250 ML IVPB ONE (08:30)
[2017-08-16] MEDS ORDERED: ONDANSETRON 4 MG INJ IV ONE (08:30)
[2017-08-16] MEDS ORDERED: oxyCODONE (CR) 10 MG TAB [oxyCONTIN] PO ONE (08:31)
[2017-08-16] MEDS ORDERED: BUPIVACAINE 0.5%/EPI (SDV) 30 ML INJ ONE (09:44)
[2017-08-16] MEDS ORDERED: SUCCINYLCHOLINE CHLORIDE 100 MG/5 ML SYG IV ONE (09:44)
[2017-08-16] MEDS ORDERED: FENTAnyl 50 MCG/ML VIAL ONE (09:44)
[2017-08-16] MEDS ORDERED: PROPOFOL 20 ML ONE (09:44)
[2017-08-16] MEDS ORDERED: LIDOCAINE 1%/EPI 30 ML INJ ONE (09:44)
[2017-08-16] MEDS: FENTAnyl 50 MCG/ML VIAL IV PRN ×4 (10:29→10:55)
[2017-08-16] MEDS ORDERED: DIPHENHYDRAMINE 50 MG INJ IV PRN (10:30)
[2017-08-16] MEDS ORDERED: METOCLOPRAMIDE 10 MG INJ IV PRN (10:30)
[2017-08-16] MEDS ORDERED: ONDANSETRON 4 MG INJ IV PRN ×2 (10:30→12:00)
[2017-08-16] MEDS ORDERED: MEPERIDINE 25 MG INJ IV PRN (10:30)
[2017-08-16] MEDS ORDERED: OXYCODONE/ACETAMINOPHEN (10/325) TAB PO ONE (11:30)
[2017-08-16] MEDS ORDERED: morphine 10 MG INJ IV PRN (12:00)
--- NOTE | 2017-08-16 14:30 | OPR ---
DATE OF OPERATION: 08/16/2017 SURGEON: Herber Morel MD. ANESTHESIOLOGIST: . PREOPERATIVE DIAGNOSIS: Stiff left knee following left total knee replacement. POSTOPERATIVE DIAGNOSIS: Stiff left knee following left total knee replacement. OPERATION PERFORMED: Manipulation of left knee under general anesthetic. FINDINGS AT SURGERY: The left knee was found to lack 10 degrees of extension and flexion was to onl y 100 degrees. Postoperatively, the range had unchanged. DESCRIPTION OF PROCEDURE: Under general anesthetic, the patient was given a muscle block intravenou sly. We waited until fasciculations in the muscles stopped and then we proceeded. Under sterile conditions, the left knee was injected with Marcaine with adrenaline. The knee was then manipulated with a stethoscope applied to the knee until the knee had improved as much as it could. Pressure was applied to the knee until no further breakdown of scar tissue could be heard through the stethoscope. An attempt was then made to extend the knee as much as possible under general anesthetic and muscle paralysis. We were not able to increase the range of motion. At the end of procedure, an Julio bandage was applied, covered over with an ice pack which was secured with another bandage. Patient returned to recovery room in safe and stable condition. There were no problems or complicat ions. Unfortunately, the range of motion was not improved at all by the manipulation which is most dishear tening. I believe that this is all related to the patient's very low pain tolerance. He was given a prescription for renewed and continued physical therapy as well as separate prescript ions for Percocet and [place]. The patient returned to recovery room in stable condition. He will be seen by me in 7 days' time fo r reevaluation. He will start physical therapy again on Monday. Dictated By: HERBER HURD/ANIBAL Conf#: [id number] DID#: [id number]
== END 2017-08-16 12:35 | disposition home or self-care (01) ==
LOC: SDS 07:12
DX: M25.662 Stiffness of left knee, not elsewhere classified (principal); I25.10 Atherosclerotic heart disease of native coronary artery without angina pectoris; I10 Essential (primary) hypertension; E78.5 Hyperlipidemia, unspecified; I25.2 Old myocardial infarction
CPT/HCPCS: 27570; 82962; J1100; J2405; J3010; J3370; J7120

== ENCOUNTER → 2017-08-29 | Outpatient (CLI) | payer MEDICARE, OTHER ==
[~2017-08-29] MED LIST changes: -ADDE30 PO; +AMPH20CA PO; -ASPI325T32 PO; +BROM500T2 PO; -FER325 PO; +LACT1CAP49 PO; -OMEG-135 PO; +OXYC-209 PO; -TEMA15CA PO; +TEMA30CA PO; -UBID30CA12 PO; -VALS320T11 PO; +VALS80TA2 PO
--- NOTE | 2017-08-31 23:07 | HKNOTE ---
DATE OF SERVICE: 08/29/2017 The patient had third manipulation of his left knee on 08/16/2017. He has been following through [facility] his physical therapy. He comes in for recheck. Surprisingly, he did not have very much pain aft er the procedure was performed. I would say that I manipulated his left knee with [facility] I could hear some scar tissue breakdown initially, and rapidly there was no more breakdown of tissue. My feeling was that I had not improved the range of motion at all by the procedure. At the end of procedure, the knee only bent to 100 degrees. To my surprise, the knee now easily bends to 110 degrees, which was also the same amount measured by the physical therapist. This is a delightful outcome. I was very pessimistic after the procedure. On physical examination today, he flexes to 110 degrees, extension still lacks 10 degrees. MANAGEMENT: The patient will continue with his physical therapy program, as well as the exercises I taught him at home, and he will be seen by me again in 6 weeks' time for reevaluation. Dictated By: LEXIE HURD/ANIBAL Conf#: [id number] DID#: [id number]
== END | disposition home or self-care (01) ==
LOC: HKI 10:52
DX: Z47.1 Aftercare following joint replacement surgery (principal); Z96.652 Presence of left artificial knee joint

== ENCOUNTER → 2017-10-12 | Outpatient (CLI) | END | disposition home or self-care (01) ==

== ENCOUNTER → 2017-11-21 | Outpatient (CLI) | END | disposition home or self-care (01) ==

== ENCOUNTER → 2018-06-18 | Outpatient (CLI) | END | disposition home or self-care (01) ==

== ENCOUNTER → 2018-06-20 | Outpatient (CLI) | END | disposition home or self-care (01) ==

== ENCOUNTER → 2018-06-25 | Outpatient (CLI) | END | disposition home or self-care (01) ==